=== PATIENT | female | born 1935 | race Caucasian/White ===

== ENCOUNTER 2018-04-15 12:09 | Outpatient (CLI) | payer MEDICARE ==
[~2018-04-15 12:09] MED LIST: Gadobenate Dimeglumine 529 MG/1 ML (20ML VIAL) ONE
--- NOTE | 2018-04-15 15:12 | MRI ---
MRI BRAIN WITH AND WITHOUT IV CONTRAST: Date: 04/15/18 HISTORY: Memory loss. FINDINGS: No restricted diffusion is seen. There is ventricular sulcal prominence due to cortical atrophy. Mult iple foci of T2 prolongation seen in the periventricular white matter consistent with chronic small v essel ischemic disease. The ventricular size is appropriate and the basilar cisterns are patent. No e vidence of infarct, hemorrhage, mass, midline shift, or abnormal extra-axial fluid collections are se en. No abnormal postcontrast enhancement is noted. IMPRESSION: 1. No CT evidence of acute intracranial process or mass. 2. Cortical atrophy. 3. Chronic small vessel ischemic disease. POS: [facility]
== END 2018-04-15 12:10 | disposition home or self-care (01) ==
LOC: SCSMRI 12:09
PROVIDERS: ATTEND Psychiatry & Neurology Neurology
DX: G31.84 Mild cognitive impairment of uncertain or unknown etiology (principal); G31.9 Degenerative disease of nervous system, unspecified; I67.82 Cerebral ischemia
CPT/HCPCS: 70553; 82565; A9579